=== PATIENT | female | born 1940 | race Caucasian/White ===

== ENCOUNTER 2024-10-08 19:24 | Emergency (ER) | payer MEDICARE, SELFPAY ==
[2024-10-08 19:37] VITALS: BP 97/62; PULSE 63; RESP 14; TEMP 36.7; O2SAT 93
--- NOTE | 2024-10-08 20:16 | W.ED.GENAD ---
Discharge Plan Disposition Patient Disposition: Home Discharge Details Clinical Impression: Diplopia Primary Care Provider: None,None ED Provider: Aki Adrian Home Meds and New Rx's Prescriptions: Continued alendronate [Fosamax] 5 MG tablet 5 mg PO DIRECTED tolnaftate 10 ML solution 1 ea Topical BID cyclosporine [Restasis] 0.4 ML dropperette 1 ea Ophthalmic HS cholecalciferol (vitamin D3) 1,000 UNITS tablet 1 ea PO DAILY calcium-vitamin D3-vitamin K 1 EACH tablet,chewable 1 ea PO DAILY cyanocobalamin (vitamin B-12) 2,500 MCG tablet 1 ea PO DAILY cephalexin 500 MG capsule 500 mg PO TID Qty: 20 0RF Discharge Instructions Instructions: [facility] (DC) Additional Instructions: As discussed, there is still concern that your symptoms could be caused by significant disease process such as stroke or brain mass. An MRI would be the next best test to further evaluate for this. Given that you do not want to stay overnight for admission to have MRI performed the morning, I would highly recommend returning to the ER after 8 AM tomorrow for further assessment and to obtain an MRI. A referral to the [facility] was also made on your behalf, care management should be reaching out to you to help you arrange for follow-up appointment Should your symptoms worsen, or if you develop new concerning symptoms, please return immediately emergency department for further evaluation. HPI General Date/Time Provider Initiated Documentation: 10/08/24 19:50. HPI Narrative: MDM/Narrative: Initial Assessment: 84-year-old female with diplopia since 10/06/2024. Intermittent episodes, currently most of the day. No eye pain. Slight deviation in left eye during tracking, more pronounced on forward gaze, concernign for CN palsy. Differential Diagnosis: -CVA/Brain Mass:CTA head/neck to rule out intracranial issues. -CN Nerve palsy: Slight adduction of the left eye with forward gaze, diploplia resolves with covering of either eye, will obtain blood work to check for underlying conditions affecting eye movement as well as neuro imaging. -Trauma/infection: patient denies any recent history of such ED Course: [address] head performed. Blood work is unrevealing. CT without acute findings. On reassessment, patient notes resolution of her headache following administration of Tylenol. 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 It was recommended that the patient be admitted to obtain MRI to rule out CVA/lesion, however patient does not want to stay in the hospital overnight and would prefer to return to the emergency department tomorrow for further evaluation. I placed a referral to the [facility], due to patient's history of vitrectomy and she is not followed locally by an eyewear consultant. Dispositoin: Discharge This document was created with assistance from [employer]. The patient consented to its use. HPI: The patient is an 84-year-old female presenting with diplopia since October 06, 2024, particularly noticeable while driving. She reports no associated ocular pain, and the diplopia resolves upon occlusion of one eye. Her ophthalmologic history includes a vitrectomy for a macular tear in the left eye and cataract extraction surgery. She has experienced headaches for several months, which she manages with ibuprofen and acetaminophen. Today, she reported a sensation of disequilibrium but denies any falls or vertigo. Her medical history is significant for L4-L5 disc pathology and varicose vein surgery performed twice, over ten years ago. She adheres to a daily regimen of calcium and vitamin D supplementation. ROS: Negative besides as mentioned above Exam: Vital signs: Reviewed. General Appearance: Alert and oriented. No acute distress. HEENT: Slight deviation of left eye during tracking medially, particularly with a neutral forward gaze. Pupils examined with light. Neck: Supple, full range of motion, no observable masses, No meningeal sign. Respiratory: No Respiratory distress. No tachypnea. Cardiovascular: RRR, no edema. Gastrointestinal: Soft, nondistended, No rebound tenderness. Back: No midline tenderness to palpation or palpable step-offs of the C/T/L spine. Neurological: Cranial nerves II-XII intact except for mild CN palsy noted on the left. Sensation intact bilaterally on face. Facial movements symmetrical. Strength 5/5 in upper and lower extremities bilaterally. Coordination intact with sfuavj-gk-[id number] and tmcs-ph-snoh tests. No pronator drift. Normal proprioception. Psychiatric: Appropriate for situation. Labs: Laboratory Tests Range/Units 10/08/24 20:50 WBC (4.4-10.8) 10^3/uL 6.67 RBC (3.93-5.22) 10^6/uL 3.32 L Hgb (11.2-15.7) g/dL 11.1 L Hct (36.0-46.0) % 32.8 L MCV (80-95) fL 99 H MCH (27.0-33.0) pg 33.4 H MCHC (32.0-36.0) % 33.8 RDW (11.7-14.6) % 12.5 Plt Count (130-400) 10^3/uL 180 MPV (8.0-11.0) fL 8.9 Immature Gran % % 0.1 Neutrophils % % 66.2 Lymphocytes % % 22.2 Monocytes % % 10.3 Eosinophils % % 0.9 Basophils % % 0.3 Nucleated RBC % (0.0-0.3) % 0.0 Absolute Neutrophils (1.2-6.7) 10^3/uL 4.41 Absolute Lymphocytes (1.2-3.4) 10^3/uL 1.48 Absolute Monocytes (0.1-0.8) 10^3/uL 0.69 Absolute Eosinophils (0.0-0.7) 10^3/uL 0.06 Absolute Basophils (0.0-0.2) 10^3/uL 0.02 Sodium (136-145) mmol/L 136 Potassium (3.5-5.1) mmol/L 3.9 Chloride (98-107) mmol/L 103 Carbon Dioxide (21.0-32.0) mmol/L 30.2 Anion Gap (3-11) mmol/L 2.8 L BUN (7-18) mg/dL 19 H Creatinine (0.55-1.02) mg/dL 0.7 Est GFR (CKD-EPI 2020) (mL/min/1.73m2) 86.30 Glucose (74-106) mg/dL 113 H Calcium (8.5-10.1) mg/dL 9.0 Total Bilirubin (0.2-1.0) mg/dL 0.7 AST (15-37) U/L 17 ALT (14-59) U/L 17 Alkaline Phosphatase (46-116) U/L 40 L Total Protein (6.4-8.2) g/dL 6.6 Albumin (3.4-5.0) g/dL 3.5 Radiology: PROCEDURE INFORMATION: Exam: CTA Head Without And With Contrast, Arteriography Exam date and time: 10/08/2024 9:18 PM Age: 84 years old Clinical indication: Other: Acute diploplia TECHNIQUE: Imaging protocol: Computed tomographic angiography of the head without and with contrast. Exam focused on the arteries. 3D rendering (Not supervised by radiologist): MIP and/or 3D reconstructed images were created by the technologist. Contrast material: OMNIPAQUE 350; Contrast volume: 70 ml; Contrast route: INTRAVENOUS (IV); COMPARISON: No relevant prior studies available. FINDINGS: ANTERIOR CIRCULATION: Right internal carotid artery: Intracranial segment is patent with no significant stenosis or occlusion. No aneurysm. Right middle cerebral artery: No occlusion or significant stenosis. No aneurysm. Right anterior cerebral artery: No occlusion or significant stenosis. No aneurysm. Left internal carotid artery: Intracranial segment is patent with no significant stenosis. No aneurysm. Left middle cerebral artery: No occlusion or significant stenosis. No aneurysm. Left anterior cerebral artery: No occlusion or significant stenosis. No aneurysm. POSTERIOR CIRCULATION: Right vertebral artery: No occlusion or significant stenosis. No aneurysm. SHIMON ABEBE Preliminary Radiology Report Page 2 of 3 Left vertebral artery: No occlusion or significant stenosis. No aneurysm. Basilar artery: No occlusion or significant stenosis. No aneurysm. Right posterior cerebral artery: origin of the right posterior cerebral artery is a common developmental variant and there is no occlusion or significant stenosis. No aneurysm. Left posterior cerebral artery: origin of the left posterior cerebral artery is a common developmental variant and there is no occlusion or significant stenosis. No aneurysm. HEAD: Brain: Mild atrophy and probable mild underlying microvascular ischemic changes with no intracranial mass, acute transcortical infarction or recent intracranial hemorrhage detected. Cerebral ventricles: No midline shift or hydrocephalus. Bones: No acute fracture. Paranasal sinuses: Grossly clear throughout. Mastoid air cells: Grossly clear bilaterally. Soft tissues: Unremarkable. IMPRESSION: 1. No large vessel stenosis or occlusion detected involving the major branches of the anterior or posterior intracranial circulation. 2. Mild atrophy and probable mild underlying microvascular ischemic changes with no intracranial mass, acute transcortical infarction or recent intracranial hemorrhage detected. PROCEDURE INFORMATION: Exam: CTA Neck Without And With Contrast Exam date and time: 10/08/2024 9:18 PM Age: 84 years old Clinical indication: Other: Acute diploplia TECHNIQUE: Imaging protocol: Computed tomographic angiography of the neck without and with contrast. Exam focused on the cervical segments of the vasculature. 3D rendering (Not supervised by radiologist): MIP and/or 3D reconstructed images were created by the technologist. Contrast material: OMNIPAQUE 350; Contrast volume: 70 ml; Contrast route: INTRAVENOUS (IV); COMPARISON: No relevant prior studies available. FINDINGS: Right common carotid artery: No stenosis. No dissection or occlusion. Right internal carotid artery: No stenosis of the extracranial segment. No dissection or occlusion. Right external carotid artery: No occlusion or stenosis of the origin. Left common carotid artery: No stenosis. No dissection or occlusion. Left internal carotid artery: No stenosis of the extracranial segment. No dissection or occlusion. MIS, SHIMON Preliminary Radiology Report PORCELAIN SLUSHER (QA) DISCREPANCY? If there is a discrepancy between the preliminary and final interpretation, please notify [employer] via [email or web address]. If you do not have access to our QA portal, call our QA team at [phone] CONFIDENTIALITY STATEMENT This report is intended only for the use of the referring physician, and only in accordance with law, If you received this in error, call [phone] Page 3 of 3 Left external carotid artery: No occlusion or stenosis of the origin. Right vertebral artery: No stenosis. No dissection or occlusion. Left vertebral artery: No stenosis. No dissection or occlusion. Soft tissues: Normal. No significant soft tissue swelling. Bones/joints: No acute fracture. IMPRESSION: No evidence of 50% or greater stenosis involving the cervical segments of the right or left internal carotid arteries by NASCET criteria. REFERENCES: NASCET CRITERIA. The degree of stenosis in the cervical segment of the internal carotid artery is based on NASCET criteria. Normal is no stenosis. Mild is less than 50% stenosis. Moderate is 50- 69% stenosis. Severe is 70% to 99% stenosis. Total occlusion is no detectable patent lumen. Thank you for allowing us to participate in the care of your patient. Dictated and Authenticated by: Jose Marion MD 10/08/2024 9:55 PM Eastern Time ([place] & [place]) Related Data Home Medications ?Medication ?Instructions ?Recorded ?Confirmed alendronate 5 mg tablet (Fosamax) 5 mg PO DIRECTED 11/14/16 11/14/16 calcium 500 mg-vitamin D3 1,000 1 ea PO DAILY 11/14/16 11/14/16 unit-vitamin K 40 mcg chewable tablet cephalexin 500 mg capsule 500 mg PO TID ##20 11/14/16 cholecalciferol (vitamin D3) 25 1 ea PO DAILY 11/14/16 11/14/16 mcg (1,000 unit) tablet cyanocobalamin (vitamin B-12) 1 ea PO DAILY 11/14/16 11/14/16 2,500 mcg tablet cyclosporine 0.05 % eye drops in a 1 ea ophthalmic (eye) HS 11/14/16 11/14/16 dropperette (Restasis) tolnaftate 1 % topical solution 1 ea topical BID 11/14/16 11/14/16 Previous Rx's ?Medication ?Instructions ?Recorded cephalexin 500 mg capsule 500 mg PO TID ##20 11/14/16 Allergies Allergy/AdvReac Type Severity Reaction Status Date / Time No Known Allergies Allergy Unverified 10/08/24 19:43 General Stated Complaint: EyeProblem YANIRA: 3 Course Vital Signs Vital signs: Vital Signs Temperature 36.7 C 10/08/24 19:37 Pulse 63 10/08/24 19:37 Respiratory Rate 14 10/08/24 19:37 Blood Pressure 97/62 L 10/08/24 19:37 Pulse Oximetry 93 10/08/24 19:37 Temperature 36.7 C 10/08/24 19:37 Temperature Source Oral 10/08/24 19:37 Pulse 63 10/08/24 19:37 Respiratory Rate 14 10/08/24 19:37 Blood Pressure 97/62 L 10/08/24 19:37 Blood Pressure Position Sitting 10/08/24 19:37 Pulse Oximetry 93 10/08/24 19:37 Oxygen Delivery Method Room Air 10/08/24 19:37 Oxygen Flow Rate 0 10/08/24 19:37 Pain Level 1 10/08/24 19:37 PFSH All Active Problems (Updated 10/08/24 @ 22:30 by Aki Adrian MD) Diplopia (Acute) Social History (System 07/25/18 @ 09:27 by Mai Inman) Smoking/Tobacco Use Status: Never Smoking risk assessment performed?: Yes Alcohol Intake: current Alcohol Intake frequency: a few times a week Alcohol type: wine Substance use type: does not use Housing: house Do you feel safe at home: Yes Do you feel safe in your relationship?: Yes PAWSS Have you Been Recently Intoxicated or Drunk Within the Last 30 days?: No Have you Ever Experienced Previous Episodes of Alcohol Withdrawal?: No Have you ever Experienced Withdrawal Seizures?: No Have you ever Experienced Delirium Tremens(DT)s?: No Have you ever undergone Alcohol Rehabilitation Treatment (i.e, inpt ot outpatient treatment programs)?: No Have you ever Experienced Blackouts?: No Have you ever Combined Alcohol with other Downers within the last 90 days?: No Have you ever Combined Alcohol with any other Substance of Abuse during the last 90 days?: No Positive Blood Alcohol level on Presentation? [PCS.BAL]: No Evidence of Increased Autonomic Activity (i.e. HR>120, tremor, sweating, agitation, nausea)?: No Result: 0
[2024-10-08 20:35] VITALS: BP 97/62; PULSE 63; RESP 14; TEMP 36.7; O2SAT 93
[2024-10-08] MEDS: Normal Saline 1,000 ML 1000 ML IV (20:35)
[2024-10-08] MEDS: ACETAMINOPHEN 1,000 MG/100 ML BAG 400 MG IVPB (20:35)
--- NOTE | 2024-10-08 20:45 | DI.CT_ITS ---
Exam(s) CT BRAIN NECK CTA EXAM: CT BRAIN NECK CTA CLINICAL HISTORY: acute diploplia. TECHNIQUE: Imaging Protocol: Axial CT angiography was performed with multi- slice acquisition and multi-planar and MIP reconstructions. CONTRAST MATERIAL: Intravenous: Omnipaque 350 Contrast volume:70 ml COMPARISON: No exams were available for comparison FINDINGS: CT Head W/O and W contrast: Ventricles and Extra axial spaces: Normal in size and morphology for the patient's age. Hemorrhage: None. Cerebral parenchyma: No evidence of acute infarct or mass. Mild atrophy consistent with the patient's age. Mild patchy areas of low attenuation in the white matter consistent with mild microvascular changes. No abnormal enhancing lesions. Midline shift: None. Brainstem/Cerebellum: No acute findings.. Calvarium: Normal. Visualized Paranasal sinuses/Mastoids: Clear. Soft Tissues: Unremarkable. Enhancement: Normal. Venous sinuses are patent. CTA Brain W: Internal Carotid Arteries: Right: No aneurysm, occlusion or significant stenosis. Left: No aneurysm, occlusion or significant stenosis. Middle Cerebral Arteries: Right: No aneurysm, occlusion or significant stenosis. Left: No aneurysm, occlusion or significant stenosis. Anterior Cerebral Arteries: Right: No aneurysm, occlusion or significant stenosis. Left: No aneurysm, occlusion or significant stenosis. Posterior cerebral Arteries: Right: origin. No aneurysm, occlusion or significant stenosis. Left: origin. No aneurysm, occlusion or significant stenosis. Vertebral Arteries: Right: No aneurysm, occlusion or significant stenosis. Left: No aneurysm, occlusion or significant stenosis. Basilar Artery: No aneurysm, occlusion or significant stenosis. CTA Neck W: Common Carotid: Right: No dissection, occlusion or significant stenosis. Left: Mild calcific plaque. No dissection, occlusion or significant stenosis. External Carotid: Right: No dissection, occlusion or significant stenosis. Left: No dissection, occlusion or significant stenosis. Internal Carotid: Right: No dissection, occlusion or significant stenosis. Left: No dissection, occlusion or significant stenosis. Vertebral Artery: Right: No dissection, occlusion or significant stenosis. Left: No dissection, occlusion or significant stenosis. Lung Apices: No acute findings. Bones: No acute abnormality. Degenerative changes in the cervical spine. Soft Tissues: Normal. IMPRESSION: 1. CTA brain: Normal CTA examination of the [place]. 2. Head CT: No acute abnormality. 3. CTA neck: No evidence of occlusion, significant stenosis or dissection. The preliminary [facility] report was reviewed. RADIATION DOSE DELIVERED: 2,011.35mGy.cm Total DLP DATA REPOSITORY: All CT scans at this facility are submitted to the National Radiology Data Registry (NRDR) Dose Index Registry (DIR) with the [employer] (ACR). RADIATION OPTIMIZATION: All CT scans at this facility use at least one of these dose optimization techniques: automated exposure control; mA and/or kV adjustment per patient size (includes targeted exams where dose is matched to clinical indication); or iterative reconstruction.
[2024-10-08 20:59] LABS: Abs Immature Grans 0.01 10^3/uL (0.0-0.06); HCT 32.8 % (36.0-46.0); HGB 11.1 g/dL (11.2-15.7); Immature Grans % 0.1 %; MCH 33.4 pg (27.0-33.0); MCHC 33.8 % (32.0-36.0); MCV 99 fL (80-95); MPV 8.9 fL (8.0-11.0); Platelet Count 180 10^3/uL (130-400); RBC 3.32 10^6/uL (3.93-5.22); RDW 12.5 % (11.7-14.6); RDW-SD 45.4 fL; WBC 6.67 10^3/uL (4.4-10.8)
[2024-10-08 21:14] LABS: ALT 17 U/L (14-59); AST 17 U/L (15-37); Albumin 3.5 g/dL (3.4-5.0); Alkaline Phosphatase 40 U/L (46-116); Anion Gap 2.8 mmol/L (3-11); BUN 19 mg/dL (7-18); Bilirubin, Total 0.7 mg/dL (0.2-1.0); CO2 30.2 mmol/L (21.0-32.0); Calcium 9.0 mg/dL (8.5-10.1); Chloride 103 mmol/L (98-107); Estimated GFR 86.30 (mL/min/1.73m2); Glucose 113 mg/dL (74-106); Potassium 3.9 mmol/L (3.5-5.1); Sodium 136 mmol/L (136-145); Total Protein 6.6 g/dL (6.4-8.2)
[2024-10-08] MEDS: Omnipaque 350 MG/ML 100 ML BTL IJ (21:22)
[2024-10-08] MEDS: Normal Saline - Diluent 50 ML VIAL IJ (21:23)
--- NOTE | 2024-10-08 21:55 | DI.[facility]_ITS ---
PROCEDURE INFORMATION: Exam: CTA Head Without And With Contrast, Arteriography Exam date and time: 10/08/2024 9:18 PM Age: 84 years old Clinical indication: Other: Acute diploplia TECHNIQUE: Imaging protocol: Computed tomographic angiography of the head without and with contrast. Exam focused on the arteries. 3D rendering (Not supervised by radiologist): MIP and/or 3D reconstructed images were created by the technologist. Contrast material: OMNIPAQUE 350; Contrast volume: 70 ml; Contrast route: INTRAVENOUS (IV); COMPARISON: No relevant prior studies available. FINDINGS: ANTERIOR CIRCULATION: Right internal carotid artery: Intracranial segment is patent with no significant stenosis or occlusion. No aneurysm. Right middle cerebral artery: No occlusion or significant stenosis. No aneurysm. Right anterior cerebral artery: No occlusion or significant stenosis. No aneurysm. Left internal carotid artery: Intracranial segment is patent with no significant stenosis. No aneurysm. Left middle cerebral artery: No occlusion or significant stenosis. No aneurysm. Left anterior cerebral artery: No occlusion or significant stenosis. No aneurysm. POSTERIOR CIRCULATION: Right vertebral artery: No occlusion or significant stenosis. No aneurysm. Left vertebral artery: No occlusion or significant stenosis. No aneurysm. Basilar artery: No occlusion or significant stenosis. No aneurysm. Right posterior cerebral artery: origin of the right posterior cerebral artery is a common developmental variant and there is no occlusion or significant stenosis. No aneurysm. Left posterior cerebral artery: origin of the left posterior cerebral artery is a common developmental variant and there is no occlusion or significant stenosis. No aneurysm. HEAD: Brain: Mild atrophy and probable mild underlying microvascular ischemic changes with no intracranial mass, acute transcortical infarction or recent intracranial hemorrhage detected. Cerebral ventricles: No midline shift or hydrocephalus. Bones: No acute fracture. Paranasal sinuses: Grossly clear throughout. Mastoid air cells: Grossly clear bilaterally. Soft tissues: Unremarkable. IMPRESSION: 1. No large vessel stenosis or occlusion detected involving the major branches of the anterior or posterior intracranial circulation. 2. Mild atrophy and probable mild underlying microvascular ischemic changes with no intracranial mass, acute transcortical infarction or recent intracranial hemorrhage detected. PROCEDURE INFORMATION: Exam: CTA Neck Without And With Contrast Exam date and time: 10/08/2024 9:18 PM Age: 84 years old Clinical indication: Other: Acute diploplia TECHNIQUE: Imaging protocol: Computed tomographic angiography of the neck without and with contrast. Exam focused on the cervical segments of the vasculature. 3D rendering (Not supervised by radiologist): MIP and/or 3D reconstructed images were created by the technologist. Contrast material: OMNIPAQUE 350; Contrast volume: 70 ml; Contrast route: INTRAVENOUS (IV); COMPARISON: No relevant prior studies available. FINDINGS: Right common carotid artery: No stenosis. No dissection or occlusion. Right internal carotid artery: No stenosis of the extracranial segment. No dissection or occlusion. Right external carotid artery: No occlusion or stenosis of the origin. Left common carotid artery: No stenosis. No dissection or occlusion. Left internal carotid artery: No stenosis of the extracranial segment. No dissection or occlusion. Left external carotid artery: No occlusion or stenosis of the origin. Right vertebral artery: No stenosis. No dissection or occlusion. Left vertebral artery: No stenosis. No dissection or occlusion. Soft tissues: Normal. No significant soft tissue swelling. Bones/joints: No acute fracture. IMPRESSION: No evidence of 50% or greater stenosis involving the cervical segments of the right or left internal carotid arteries by NASCET criteria. REFERENCES: NASCET CRITERIA. The degree of stenosis in the cervical segment of the internal carotid artery is based on NASCET criteria. Normal is no stenosis. Mild is less than 50% stenosis. Moderate is 50-69% stenosis. Severe is 70% to 99% stenosis. Total occlusion is no detectable patent lumen. Dictated and Authenticated by: Jose Marion MD. Orderin Kaylah Prabhakar MD
[2024-10-08 23:17] VITALS: BP 93/52; PULSE 56; RESP 16; O2SAT 96
== END 2024-10-08 23:15 | disposition home or self-care (01) ==
PROVIDERS: Emergency Provider General Practice
DX: H53.2 Diplopia (principal)
CPT/HCPCS: 36415; 70496; 70498; 80053; 96365; 99285; 85025; 99284; J0131; J3490

== ENCOUNTER 2024-10-09 09:45 | Emergency (ER) | payer MEDICARE, SELFPAY ==
[2024-10-09 09:52] VITALS: BP 91/61; PULSE 85; RESP 18; TEMP 36.8; O2SAT 90
--- NOTE | 2024-10-09 10:00 | DI.MRI_ITS ---
Exam(s) MR BRAIN WO EXAM: MR BRAIN WO CLINICAL HISTORY: diplopia, headache TECHNIQUE: Multiplanar multisequence MRI of the brain was performed. COMPARISON: CT CT BRAIN NECK CTA from 10/08/2024 FINDINGS: VENTRICLES AND EXTRA AXIAL SPACES: Normal in size and morphology for the patient's age. MIDLINE SHIFT: None. CEREBRAL PARENCHYMA: No focus of restricted diffusion to suggest acute infarct. No space-occupying lesion identified. Mild atrophy consistent with the patient's age. Mild scattered foci of high signal in the white matter consistent with sequela of chronic microvascular disease. BRAINSTEM/CEREBELLUM: Normal. VISUALIZED PARANASAL SINUSES: Clear. MASTOIDS:Clear. Vasculature: Normal flow void. PITUITARY GLAND: Unremarkable. ORBITS: Unremarkable. IMPRESSION: Unremarkable MRI of the brain. DATA REPOSITORY:
--- NOTE | 2024-10-09 10:15 | RT.EKG_ITS ---
APPROVED REPORT Exam: Resting ECG Reason for Exam: palpitations Patient Location: E HR:70 bpm ECG Measurements Heart Rate 70 AXIS CA 193 P 70 QRSd 79 QRS 15 QT 386 T 49 QTc 417 Conclusion Sinus rhythm...normal P axis, V-rate 60- 99
[2024-10-09 12:15] VITALS: BP 102/59; PULSE 66; RESP 16; O2SAT 94
--- NOTE | 2024-10-09 13:19 | ED.GENADUL_ITS ---
Discharge Plan Disposition Patient Disposition: Home Condition: Stable Discharge Details Clinical Impression: Diplopia, Anemia Primary Care Provider: None,None ED Provider: Sridhar Gomez Home Meds and New Rx's Prescriptions: Continued tolnaftate 10 ML solution 1 ea Topical BID PRN cholecalciferol (vitamin D3) 1,000 UNITS tablet 1 ea PO DAILY calcium-vitamin D3-vitamin K 1 EACH tablet,chewable 1 ea PO DAILY zoledronic acid 4 mg/5 mL solution 4 mg IV Q4W Rx Instructions: administer over at least 15 mins Discharge Instructions Instructions: [facility] Additional Instructions: Please follow-up with your primary care physician. Call today to arrange timely follow-up. Please follow-up with your personalized living assistant. Call today to arrange follow-up for later this week for further evaluation. Return to the emergency department immediately for any worsening or new concerning symptoms. Discharge Data Discharge Date/Time-TO BE ENTERED AT DEPARTURE: 10/09/24 13:46 HPI General Mode of arrival: ambulatory . Date/Time Provider Initiated Documentation: 10/09/24 10:10 . Limitations to Documentation: no limitations . Information obtained by: patient . HPI Narrative: HISTORY OF PRESENT ILLNESS 84-year-old female with trigeminal neuralgia presents with persistent diplopia. Diplopia started October 06, 2024. She reports no associated ocular pain. Ophthalmologic history includes a vitrectomy for a macular tear in the left eye and cataract extraction surgery. She has reading glasses and is due for distance glasses, but advised to wait a year by retinal specialist. Patient was seen here in the Emergency Department last night and comprehensive workup including CTA of the brain and neck as well as labs. Testing was nondiagnostic and hospitalization for MRI was recommended. Patient declined this and returns today requesting completion of recommended diagnostic workup. She notes continued diplopia today. She did have frontal headache upon waking which improved with 2 Tylenol. Frontal headache upon waking, subsided after two Tylenol. PAST SURGICAL HISTORY: Vitrectomy Related Data Home Medications ?Medication ?Instructions ?Recorded ?Confirmed calcium 500 mg-vitamin D3 1,000 1 ea PO DAILY 11/14/16 10/09/24 unit-vitamin K 40 mcg chewable tablet cholecalciferol (vitamin D3) 25 1 ea PO DAILY 11/14/16 10/09/24 mcg (1,000 unit) tablet tolnaftate 1 % topical solution 1 ea topical BID PRN 1 10/09/24 zoledronic acid 4 mg/5 mL 4 mg IV Q4W 10/09/24 5 intravenous solution Allergies Allergy/AdvReac Type Severity Reaction Status Date / Time No Known Allergies Allergy Verified 10/09/24 10:09 General Stated Complaint: Recheck YANIRA: 3 Review of Systems All systems reviewed & are unremarkable except as noted in HPI and below Constitutional Constitutional: Denies fever(s) Eyes Eyes: Reports as per HPI Exam Const General: cooperative and no acute distress HENMT Head: normocephalic and atraumatic Mouth: moist mucous membranes Throat: posterior oropharynx normal Eyes Conjunctivae: normal conjunctivae Sclera: normal sclerae Pupils: PERRL EOM: EOM intact bilaterally Other: Left upper outer visual field abnormality left eye only Resp Auscultation: clear to auscultation bilaterally, no rales, no rhonchi and no wheezes Cardio Jugular venous pressure: no JVD Rate: regular rate and not tachycardic Rhythm: regular rhythm GI Palpation: soft, not firm, no guarding, no masses, not rigid and nontender Skin General skin exam: no rashes or lesions noted Neuro General: patient alert, patient awake, patient oriented x3 and tone normal Cranial Nerves: CN's II-XI intact bilaterally Cognition: normal cognition Speech: speech normal Gait: normal gait Motor: strength 5/5 throughout Extrem General: no edema Psych Appearance: grossly normal Mental Status: mental status grossly normal Speech and Movement: speech and movement normal Course Vital Signs Vital signs: Vital Signs Temperature 36.8 C 10/09/24 09:52 Pulse 85 10/09/24 09:52 Respiratory Rate 18 10/09/24 09:52 Blood Pressure 91/61 L 10/09/24 09:52 Pulse Oximetry 90 L 10/09/24 09:52 Temperature 36.8 C 10/09/24 09:52 Pulse 66 10/09/24 12:15 Respiratory Rate 16 10/09/24 12:15 Respiratory Effort Normal 10/09/24 12:15 Respiratory Depth Normal 10/09/24 12:15 Blood Pressure 102/59 L 10/09/24 12:15 Blood Pressure Mean 73 10/09/24 12:15 Blood Pressure Position Supine 10/09/24 12:15 Pulse Oximetry 94 10/09/24 12:15 Oxygen Delivery Method Room Air 10/09/24 12:15 Oxygen Flow Rate 0 10/09/24 12:15 Pain Level 2 10/09/24 09:52 Medical Decision Making ASSESSMENT AND PLAN Initial Assessment: Persistent diplopia since last night, frontal headache mostly subsided with Tylenol, sensation of elevated pulse despite HR 85. Differential Diagnosis: - Ocular issue: Visual cut in left upper visual field. MRI brain, visual acuity assessment. - Cardiac arrhythmia: Sensation of elevated pulse. EKG to evaluate heart rhythm. - Consider CVA or mass lesion ED Course: - MRI of the brain was interpreted by radiology:No focus of restricted diffusion to suggest acute infarct. No space-occupying lesion identified. Mild atrophy consistent with the patient's age. Mild scattered foci of high signal in the white matter consistent with sequela of chronic microvascular disease. Unremarkable MRI of the brain. - Performed visual acuity assessment. - Performed EKG. please see report. Nondiagnostic. Patient monitored while in the ED and had no arrhythmia. - All results discussed with the patient. Patient stable and requesting discharge. Usual and customary discharge instructions reviewed. I recommended follow-up with her personalized living assistant or [facility]. Final Assessment: Evaluated for persistent diplopia, frontal headache, sensation of elevated pulse. Ordered MRI brain and visual acuity assessment for diplopia. Performed EKG for heart rhythm. Clinical Impression: - Diplopia - Headache Disposition: Discharge home. Return to ED if symptoms worsen or new symptoms develop. This document was written with the assistance of DAREK Purdy. The patient consented to its use. Medical Records Medical records reviewed: Yes I reviewed the patient's medical records. PFSH All Active Problems (Updated 10/09/24 @ 13:23 by Sridhar Gomez MD) Anemia (Chronic) Diplopia (Acute) Diplopia (Acute) Social History (System 07/25/18 @ 09:27 by Mai Inman) Smoking/Tobacco Use Status: Never Smoking risk assessment performed?: Yes Alcohol Intake: current Alcohol Intake frequency: a few times a week Alcohol type: wine Substance use type: does not use Housing: house Do you feel safe at home: Yes Do you feel safe in your relationship?: Yes
[2024-10-09 13:45] VITALS: BP 97/43; PULSE 68; RESP 16; O2SAT 98
== END 2024-10-09 13:46 | disposition home or self-care (01) ==
PROVIDERS: Emergency Provider Student in an Organized Health Care Education/Training Program
DX: H53.2 Diplopia (principal); D64.9 Anemia, unspecified
CPT/HCPCS: 99283; 99284; 93005; 70551; 93010